=== PATIENT | male | born 1960 | race Caucasian/White ===

== ENCOUNTER 2018-04-27 23:48 | Emergency (ER) | payer OTHER ==
[~2018-04-27] VITALS: Ht 182.9 cm; Wt 78.0 kg
[2018-04-27 23:52] VITALS: BP 144/96; PULSE 94; RESP 17; TEMP 98.6; O2SAT 97
[2018-04-28] MEDS ORDERED: BP MED PO (00:04)
[2018-04-28] MEDS ORDERED: DIPHTH/TETANUS/ACEL PERTUSSIS (BOOSTER) 0.5 ML VIAL/PFS IM ONE (00:15)
[2018-04-28] MEDS ORDERED: SODIUM CHLOR 0.9% 1000 ML INJ 1,000 ML IV SCH (00:15)
[2018-04-28] MEDS ORDERED: MORPHINE SULFATE 4 MG/ML INJ IV PUSH ONE (00:15)
[2018-04-28] MEDS ORDERED: METOCLOPRAMIDE HCL 10 MG/2 ML VIAL IV PUSH ONE (00:15)
--- NOTE | 2018-04-28 00:16 | PD ---
HPI Chief Complaint: Laceration/Skin Injury Time Seen by Provider: 00:00 Travel History International Travel<30 days: No Contact w/Intl Traveler<30days: No Traveled to known affect area: No History of Present Illness HPI The patient is a 57 year old male who presents to the [facility] emergency department with a history of left third digit injury with a skill saw prior to arrival. The patient reports that he was [place] [employer] [place] with [place] when he noticed that there was a piece of plastic hanging from it. He used a battery -powered skill saw in order to attempt to cut off the piece of plastic when he missed and cut his left third digit. The patient has a near amputation to the left third digit reported by fire rescue and ambulance services. This reportedly occurred at approximately 10:30 PM. The patient has no sensation to the fingertip. The patient had a bandage applied prior to arrival. Bleeding was controlled. The patient is unsure when he last had his tetanus updated. The patient denies having any other injuries associated with this. On review of systems otherwise, he denies having any known recent fevers, cough or congestion, neck pain, chest pain, shortness of breath, abdominal pain, vomiting , diarrhea, urinary symptoms, or other neurologic symptoms. PFSH Past Medical History Narrative Medical The patient's past medical history is significant for hypertension Cardiovascular Problems: Yes (HTN) Hypertension: Yes Past Surgical History Narrative Surgical The patient's past surgical history is reportedly none. Surgical History: No Previous Surgery Social History Alcohol Use: No Tobacco Use: No Substance Use: No Allergies-Medications (Allergen,Severity, Reaction): Coded Allergies: Penicillins (Verified Allergy, Unknown, 04/28/18) iodine (Verified Allergy, Unknown, 04/28/18) Reported Meds & Prescriptions Reported Meds & Active Scripts Active Reported [Bp Med] PO DAILY Review of Systems Except as stated in HPI: all other systems reviewed are Neg General / Constitutional: No: Fever Eyes: No: Visual changes HENT: No: Headaches Cardiovascular: No: Chest Pain or Discomfort Respiratory: No: Shortness of Breath Gastrointestinal: No: Abdominal Pain Genitourinary: No: Dysuria Musculoskeletal: Positive: Limited ROM, Pain Skin: No Rash Neurologic: No: Weakness Psychiatric: No: Depression Endocrine: No: Polydipsia Hematologic/Lymphatic: No: Easy Bruising Physical Exam Narrative General: The patient is a well-developed well-nourished male in no acute distress. Head and Neck exam: Head is normocephalic atraumatic. Eyes: EOMI, pupils are equal round and reactive to light. Nose: Midline septum with pink mucous membranes Mouth: Dentition unremarkable. Moist mucus membranes. Posterior oropharynx is not erythematous. No tonsillar hypertrophy. Uvula midline. Airway patent. Neck: No palpable lymphadenopathy. No nuchal rigidity. No thyromegaly. Cardiovascular: Regular rate and rhythm without murmurs, gallops, or rubs. No pulse deficit to the extremities on simultaneous auscultation and palpation of his radial artery. Lungs: Clear to auscultation bilaterally. No wheezes, rhonchi, or rales. Abdomen: Soft, without tenderness to palpation in all 4 quadrants of the abdomen. No guarding, rebound, or rigidity. Normal bowel sounds are audible. No tenderness on palpation of McBurney's point. Extremities: No clubbing, cyanosis, or edema. 2+ pulses in all 4 extremities. The area of interest is the left third digit. A bandage is in place which was gently removed. The patient was noted to have a near amputation of the left third digit just distal to the PIP joint. The patient's finger is held on by a piece of skin on the older side of the laceration. The patient has no range of motion. The patient's finger is held in flexion. The patient is not able to extend his finger. The patient has a second laceration involving the radial side of the finger pad near the DIP joint. The patient has dried well over the finger pad making it difficult to assess for any capillary refill. The patient has no significant sensation involving the finger pad. Back: No spinous process tenderness to palpation. No costovertebral angle tenderness to palpation. Neurologic Exam: Grossly nonfocal, except for decreased sensation in the fingertip of the left third digit. Skin Exam: No rash noted. Intact skin that is warm and dry. Data Data Last Documented VS Vital Signs Date Time Temp Pulse Resp B/P (MAP) Pulse Ox O2 Delivery O2 Flow Rate FiO2 04/27/18 23:52 98.6 94 17 144/96 (112) 97 Orders Orders Complete Blood Count With Diff (04/28/18 00:05) Basic Metabolic Panel (Bmp) (04/28/18 00:05) Prothrombin Time / Inr (Pt) (04/28/18 00:05) Act Partial Throm Time (Ptt) (04/28/18 00:05) Iv Access Insert/Monitor (04/28/18 00:05) Ecg Monitoring (04/28/18 00:05) Oximetry (04/28/18 00:05) Sodium Chlor 0.9% 1000 Ml Inj (Ns 1000 M (04/28/18 00:15) [id number] (Booster) Inj (Boostrix (04/28/18 00:15) Morphine Inj (Morphine Inj) (04/28/18 00:15) Metoclopramide Inj (Reglan Inj) (04/28/18 00:15) Type And Screen (04/28/18 00:05) Hand, Complete ([id number]) (04/28/18 00:13) Radiology Film Requests (04/28/18 ) Ed Discharge Order (04/28/18 01:42) Labs Laboratory Tests Test 04/28/18 00:18 White Blood Count 9.0 TH/MM3 Red Blood Count 4.54 MIL/MM3 Hemoglobin 13.8 GM/DL Hematocrit 40.6 % Mean Corpuscular Volume 89.3 FL Mean Corpuscular Hemoglobin 30.4 PG Mean Corpuscular Hemoglobin Concent 34.1 % Red Cell Distribution Width 13.8 % Platelet Count 221 TH/MM3 Mean Platelet Volume 8.0 FL Neutrophils (%) (Auto) 60.7 % Lymphocytes (%) (Auto) 27.0 % Monocytes (%) (Auto) 10.2 % Eosinophils (%) (Auto) 1.2 % Basophils (%) (Auto) 0.9 % Neutrophils # (Auto) 5.4 TH/MM3 Lymphocytes # (Auto) 2.4 TH/MM3 Monocytes # (Auto) 0.9 TH/MM3 Eosinophils # (Auto) 0.1 TH/MM3 Basophils # (Auto) 0.1 TH/MM3 CBC Comment DIFF FINAL Differential Comment Prothrombin Time 10.5 SEC Prothromb Time International Ratio 1.0 RATIO Activated Partial Thromboplast Time 20.9 SEC Blood Urea Nitrogen 22 MG/DL Creatinine 1.58 MG/DL Random Glucose 141 MG/DL Calcium Level 9.0 MG/DL Sodium Level 143 MEQ/L Potassium Level 3.7 MEQ/L Chloride Level 108 MEQ/L Carbon Dioxide Level 25.2 MEQ/L Anion Gap 10 MEQ/L Estimat Glomerular Filtration Rate 45 ML/MIN MDM Medical Decision Making Medical Screen Exam Complete: Yes Emergency Medical Condition: Yes Medical Record Reviewed: Yes Differential Diagnosis Near finger amputation, versus open fracture, versus tendon laceration, versus neurovascular injury Narrative Course During the course of the patient's emergency department visit, the patient's history, examination, and differential diagnosis were reviewed with the patient. The patient was placed on a potline monitor with oximetry and frequent blood pressure monitoring. The patient had IV access obtained and blood work sent for analysis. The patient was initially provided an update to his tetanus, clindamycin 600 mg IV due to his penicillin allergy, normal saline at 100 mL/h. The patient was given morphine for pain, Reglan for nausea. A call was placed out to the hand surgeon manager provider relations. I spoke to Dr. Hines, the hand surgeon at approximately midnight. She reports that the OR at this facility does not have the proper equipment for reimplantation of his third digit. She reviewed pictures of the patient's injury and felt that the patient's best care would be to be seen at reimplantation facility such as [facility]. A call was placed out at [facility] for consideration of transfer. An x-ray of the left hand was ordered. The patient's laboratory studies were reviewed and remarkable for a white count of 9, hemoglobin 13.8, platelets 221 with 10.2 monocytes, PT 10.5, PTT 20.9. Basic metabolic profile reveals a chloride of 108, BUN 22, creatinine 1.58, glucose 141 Radiology studies were reviewed and remarkable for Last Impressions Hand X-Ray 04/28/18 0013 Signed Impressions: CONCLUSION: Fracture or dislocation involving the third proximal phalanx with soft tissue i njury. I spoke to Dr. Gold, the hand surgeon at [facility] at approximately 1217. After further discussion with him and review of pictures of the patient's hand injury he did accept the patient for transfer to the [facility] emergency department for evaluation by the hand surgery department. The patient was agreeable with the plan to proceed with transfer to [facility]. 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
[2018-04-28 00:23] LABS: AUTOMATED NEUTROPHIL # 5.4 TH/MM3 (1.8-7.7); BASOPHIL # 0.1 TH/MM3 (0-0.2); BASOPHIL % 0.9 % (0.0-2.0); EOSINOPHIL # 0.1 TH/MM3 (0-0.4); EOSINOPHIL % 1.2 % (0.0-4.0); HEMATOCRIT 40.6 % (39.0-51.0); HEMOGLOBIN 13.8 GM/DL (13.0-17.0); LYMPHOCYTE # 2.4 TH/MM3 (1.0-4.8); MEAN CELL VOLUME 89.3 FL (80.0-100.0); MEAN CORPUSCULAR HEMOGLOBIN 30.4 PG (27.0-34.0); MEAN CORPUSCULAR HGB CONC 34.1 % (32.0-36.0); MONO % 10.2 % (0.0-8.0); MONOCYTE # 0.9 TH/MM3 (0-0.9); NEUT % 60.7 % (16.0-70.0); PLATELET COUNT 221 TH/MM3 (150-450); RED BLOOD COUNT 4.54 MIL/MM3 (4.50-5.90); RED CELL DISTRIBUTION WIDTH 13.8 % (11.6-17.2)
[2018-04-28 00:38] LABS: PROTHROMBIN TIME - PATIENT 10.5 SEC (9.8-11.6)
--- NOTE | 2018-04-28 01:11 | RADRPT ---
EXAM DATE: 04/28/2018 12:45 AM EDT AGE/SEX: 57 years / Male INDICATIONS: Trauma to Lt hand. CLINICAL DATA: This is the patient's initial encounter. Patient reports that signs and symptoms have been present for 1 day and indicates a pain score of 2/10. MEDICAL/SURGICAL HISTORY: None. None. COMPARISON: No prior [facility] exams available for comparison. FINDINGS: There is trauma and a fracture through the third proximal phalanx. The fracture is displaced. No defi nite joint dislocation. The rest the bony structures are grossly intact. CONCLUSION: Fracture or dislocation involving the third proximal phalanx with soft tissue injury. Electronically signed by: Tomi Hurd MD 04/28/2018 1:10 AM EDT
[2018-04-28 01:19] LABS: BICARBONATE 25.2 MEQ/L (21.0-32.0); CREATININE 1.58 MG/DL (0.60-1.30)
[2018-04-28 01:51] VITALS: BP 152/92; PULSE 88; RESP 15; O2SAT 95
== END 2018-04-28 02:42 | disposition short-term general hospital (02) ==
LOC: NEPC 23:48
DX: S68.123A Partial traumatic metacarpophalangeal amputation of left middle finger, initial encounter (principal); I10 Essential (primary) hypertension; W27.0XXA Contact with workbench tool, initial encounter; Y93.89 Activity, other specified; Z23 Encounter for immunization
CPT/HCPCS: 73130; 80048; 85025; 85610; 85730; 86850; 86900; 86901; 90471; 90715; 96374; 96375; 99285; J2270; J2765; J7030